=== PATIENT | male | born 1980 | race Two or more races ===

== ENCOUNTER 2021-02-16 09:10 | Outpatient (CLI) | payer OTHER | END 2021-02-16 09:15 | disposition home or self-care (01) | LOC: PPH VACUNA 09:10 | DX: Z23 Encounter for immunization (principal) ==

== ENCOUNTER 2022-12-11 06:31 | Day surgery (SDC) | payer OTHER ==
[~2022-12-11] VITALS: Ht 165.1 cm; Wt 59.9 kg
[~2022-12-11 06:31] MED LIST: SYNTHROID137 MCG PO
== END 2022-12-11 16:05 | disposition home or self-care (01) ==
LOC: CIR.AMB 06:31
PROVIDERS: ATTEND Orthopaedic Surgery Hand Surgery
DX: D36.12 Benign neoplasm of peripheral nerves and autonomic nervous system, upper limb, including shoulder (principal); Z20.822 Contact with and (suspected) exposure to COVID-19